=== PATIENT | male | born 1950 ===

== ENCOUNTER → 2017-09-30 | Outpatient (CLI) | payer MEDICARE ==
[~2017-09-30] MED LIST: ALTABAX TP; ASPI325T6 PO; ASPIRIN E.C. 8181 MG PO; BACTRIM DS 8001 TAB PO; BACTROBAN2% TP; CLINDAMYCIN PHO60 ML TP; GLUCOPHAGE500 MG/TAB PO; LEVAQUIN 5500 MG/TA1 PO; LIPITOR 40MG TA40 MG PO; LISINOPRIL20 MG PO; LOPRESSOR 225 MG/TAB PO; METFORMIN500 MG PO; MUCINEX1200 MG PO; NORVASC 5MG5 MG/TAB PO; PHISOHEX TP; PLAVIX 75MG TAB75 MG PO; PRIL40 PO; PROVENTIL0.09 MG/A1 IH; SUPER EPA 1201200 MG PO; TEA TREE OIL; ZESTRIL 5MG5 MG PO
[2017-09-30 16:13] LABS: CHOLESTEROL RISK RATIO 6.1
== END ==
LOC: COL.LAB 15:15
PROVIDERS: Family Medicine
DX: E78.00 Pure hypercholesterolemia, unspecified (principal)

== ENCOUNTER 2018-02-14 06:43 | Emergency (ER) | payer MEDICARE ==
[~2018-02-14] VITALS: Ht 170.2 cm; Wt 94.5 kg
[2018-02-14 06:50] VITALS: TEMP 99.6
[2018-02-14 07:52] LABS: BASO # 0.1 (0.0-0.2); BASO % 0.8 % (0.0-2.0); EOS # 0.3 (0.0-0.7); EOS % 5.1 % (0-4.0); GRAN # 3.8 (1.4-6.5); GRAN % 59.3 % (42.2-75.2); HEMATOCRIT 44.5 % (42.0-52.0); HEMOGLOBIN 14.2 g/dl (13.5-18.0); LYMPH # 1.5 (1.2-3.4); LYMPH % 22.7 % (20.0-51.0); MEAN CELL VOLUME 79 fl (80.0-100.0); MEAN CORPUSCULAR HEMOGLOBIN 25 pg (27.0-31.0); MEAN CORPUSCULAR HGB CONC 32 g/dl (33.0-37.0); MEAN PLATELET VOLUME 10.7 fl (7.4-10.4); MONO # 0.8 (0.1-0.6); MONO % 11.8 % (1.7-9.3); PLATELET COUNT 175 K/mm3 (130-400); RED BLOOD COUNT 5.65 M/mm3 (4.20-5.60)
[2018-02-14 07:54] LABS: ALANINE AMINOTRANSFERASE 46 U/L (21-72); ALBUMIN 4.2 gm/dL (3.5-5.0); ALKALINE PHOSPHATASE 79 U/L (50-136); ANION GAP 7 mmol/L (7-16); AST,SGOT 30 U/L (15-37); BILIRUBIN,TOTAL 0.5 mg/dL (0.0-1.0); BLOOD UREA NITROGEN 23 mg/dL (9-20); CALCIUM 9.2 mg/dL (8.4-10.2); CARBON DIOXIDE 28 mmol/L (22-30); CHLORIDE 106 mmol/L (98-107); GLUCOSE 177 mg/dL (74-106); POTASSIUM 4.5 mmol/L (3.4-5.0); SODIUM 140 mmol/L (137-145); TOTAL PROTEIN 7.7 gm/dL (6.4-8.2)
[2018-02-14 08:06] LABS: TROPONIN-I < 0.012 ng/mL (0.000-0.034)
[2018-02-14] MEDS ORDERED: GLUCOTROL10 MG PO (08:28)
[2018-02-14] MEDS ORDERED: FLOVENT 44MCG I13 GM IH (08:37)
[2018-02-14] MEDS ORDERED: DOXYCYCLINE 10100 MG PO (08:37)
[2018-02-14] MEDS ORDERED: PHENERGAN W/CO120 M1 PO (08:40)
[2018-02-14 09:50] VITALS: BP 139/76; PULSE 93
== END 2018-02-14 09:56 | disposition home or self-care (01) ==
LOC: COL.ER 06:43
PROVIDERS: Emergency Medicine
DX: J20.9 Acute bronchitis, unspecified (principal); E11.9 Type 2 diabetes mellitus without complications; I10 Essential (primary) hypertension; I25.10 Atherosclerotic heart disease of native coronary artery without angina pectoris; Z98.890 Other specified postprocedural states; Z95.5 Presence of coronary angioplasty implant and graft; Z79.84 Long term (current) use of oral hypoglycemic drugs
CPT/HCPCS: J8540

== ENCOUNTER 2021-01-07 10:57 | Inpatient (IN) | payer MEDICARE ==
[2021-01-07] VITALS (315 sets, daily range): BP systolic 113–152; BP diastolic 59–81; PULSE 78–95; TEMP 96.6–99.4; O2SAT 74–100
[~2021-01-07] VITALS: Ht 170.2 cm; Wt 87.3 kg
[~2021-01-07 10:57] MED LIST changes: +DOXYCYCLINE 10100 MG PO; +FLOVENT 44MCG I13 GM IH; +GLUCOTROL10 MG PO; +PHENERGAN W/CO120 M1 PO
[2021-01-07 11:18] LABS: MEAN CELL VOLUME 88 fl (80.0-100.0); MEAN CORPUSCULAR HGB CONC 32 g/dl (33.0-37.0); MEAN PLATELET VOLUME 11.6 fl (7.4-10.4); PLATELET COUNT 193 K/mm3 (130-400); RED BLOOD COUNT 7.47 M/mm3 (4.20-5.60); REDCELL DISTRIBUTION WIDTH-CV 13.8 % (11.5-14.5)
[2021-01-07 11:19] LABS: HEMATOCRIT 65.5 % (42.0-52.0); HEMOGLOBIN 21.1 g/dl (13.5-18.0); MEAN CORPUSCULAR HEMOGLOBIN 28 pg (27.0-31.0)
[2021-01-07 11:21] LABS: ARTERIAL BLD GAS TCO2 CT 22.7; ARTERIAL BLOOD GAS BASE EXCESS -18.9 (-2-2); ARTERIAL BLOOD GAS HCO3 19.1 meq/L (22-26); ARTERIAL BLOOD GAS PO2 67.6 mmHg (80-100)
[2021-01-07 11:22] LABS: ARTERIAL BLOOD GAS PCO2 118.1 mmHg (35-45); ARTERIAL BLOOD GAS pH 6.83 (7.35-7.45)
[2021-01-07 11:26] LABS: COLLECTION METHOD CATHETER
[2021-01-07 11:31] LABS: PH 6 (5-8); SQUAMOUS EPITHELIAL None Seen /hpf; URINE APPEARANCE Clear; URINE BACTERIA Rare /hpf; URINE BILIRUBIN Negative (NEGATIVE); URINE BLOOD Negative (NEGATIVE); URINE COLOR Straw; URINE GLUCOSE 3+ (NEGATIVE); URINE KETONE Negative (NEGATIVE); URINE LEUKOCYTE ESTERASE Negative (NEGATIVE); URINE NITRATE Negative (NEGATIVE); URINE PROTEIN(semi-quant) 2+ (NEGATIVE); URINE UROBILINOGEN Negative (NEGATIVE)
[2021-01-07 12:14] LABS: EOSINOPHIL 3 % (0-4); NEUTROPHILS 39 % (42.0-75.2)
--- NOTE | 2021-01-07 12:19 | NUR ---
Patient presented code blue and is now stabilized. cotton farmworker contacted patient's spouse, Sue Mesa #[phone] and advised that patient had a health event and was in our emergency room, soon to be admitted to ICU 2. Worker arranged for [facility] emergency services to transport spouse to the hospital as she does not have a car at her work location.
[2021-01-07 12:20] LABS: PLATELET ESTIMATE NORMAL (NORMAL)
[2021-01-07 12:21] LABS: LYMPHOCYTE 57 % (20.0-51.0)
[2021-01-07 12:26] LABS: ALBUMIN 3.4 gm/dL (3.5-5.0); BILIRUBIN,TOTAL 0.7 mg/dL (0.0-1.0); CALCIUM 8.4 mg/dL (8.4-10.2); CREATININE, serum 1.05 (0.66-1.25); TOTAL PROTEIN 6.4 gm/dL (6.4-8.2)
[2021-01-07 12:36] LABS: TSH w REFLEX 5.016 uIU/mL (0.350-4.940)
[2021-01-07 12:38] LABS: TROPONIN-I 0.038 ng/mL (0.000-0.035)
--- NOTE | 2021-01-07 13:55 | NUR ---
1355: pt arrived to ICU 8 with RadhaEMT. Levophed infusing to periperal IV - site appears stable. Propofol and Levophed gtt adjusted for accurate weight. 1400: MD Carline notified again for central line placement - MD in surgery 1405: MD Nas phoned to notify pt's arrival 1440: MD Tiff in room 1445: Anesthesia Paged for arterial line placement 1450: Pt vomited multiple times orange colored emesis with scrambled eggs abovious in output. Oral suctioning and oral care provided - SpO2 maintained >95%. 1500: 2 anesthesia providers in room. TimeOut completed before procedure. 1520: epitaxial reactor technician in room 1537: MD Carline here for central line placement. Levophed gtt moved to central line after MD Carline okay'd placement 1600: Pt's Ignacia at bedside. Update provided. is tearful.
[2021-01-07 14:29] LABS: ARTERIAL BLD GAS O2 SATURATION 95.4 % (92-100); ARTERIAL BLD GAS TCO2 CT 22.4; ARTERIAL BLOOD GAS BASE EXCESS -7.2 (-2-2); ARTERIAL BLOOD GAS HCO3 20.8 meq/L (22-26); ARTERIAL BLOOD GAS PCO2 50.8 mmHg (35-45); ARTERIAL BLOOD GAS PO2 86.5 mmHg (80-100); ARTERIAL BLOOD GAS pH 7.23 (7.35-7.45)
[2021-01-07 14:58] LABS: C-REACTIVE PROTEIN 0.5 mg/dL (0.0-0.9); MAGNESIUM 1.8 mg/dL (1.6-2.3)
[2021-01-07 14:59] LABS: PARTIAL THROMBOPLASTIN TIME 26.5 SECONDS (26.0-37.0)
[2021-01-07 15:23] LABS: TROPONIN-I 0.811 ng/mL (0.000-0.035)
[2021-01-07 15:57] LABS: CALCIUM 7.1 mg/dL (8.4-10.2); CREATININE, serum 0.92 (0.66-1.25); POTASSIUM 4.2 mmol/L (3.4-5.0)
[2021-01-07 16:49] LABS: HEMATOCRIT 48.8 % (42.0-52.0)
[2021-01-07 16:50] LABS: HEMOGLOBIN 16.8 g/dl (13.5-18.0)
[2021-01-07 16:54] LABS: CALCIUM 6.9 mg/dL (8.4-10.2); CREATININE, serum 0.87 (0.66-1.25); POTASSIUM 3.9 mmol/L (3.4-5.0)
[2021-01-07 17:05] LABS: C-REACTIVE PROTEIN 0.8 mg/dL (0.0-0.9)
[2021-01-07 18:21] LABS: CALCIUM 6.9 mg/dL (8.4-10.2); CREATININE, serum 0.8 (0.66-1.25); POTASSIUM 3.4 mmol/L (3.4-5.0)
[2021-01-07] MEDS ORDERED: CLARITIN 1010 MG/TAB PO (18:28)
[2021-01-07] MEDS ORDERED: ONE-A-DAY ESSE1 EACH PO (18:29)
[2021-01-07] MEDS ORDERED: UBIQUINOL100 MG PO (18:30)
[2021-01-07] MEDS ORDERED: ADVIL200 MG PO (18:30)
[2021-01-07] MEDS ORDERED: OMEGA-3 1000 MG1 CAP PO (18:31)
[2021-01-07 19:19] LABS: ARTERIAL BLD GAS O2 SATURATION 98.8 % (92-100); ARTERIAL BLD GAS TCO2 CT 22.4; ARTERIAL BLOOD GAS BASE EXCESS -1.2 (-2-2); ARTERIAL BLOOD GAS HCO3 21.4 meq/L (22-26); ARTERIAL BLOOD GAS PCO2 31.2 mmHg (35-45); ARTERIAL BLOOD GAS pH 7.46 (7.35-7.45)
[2021-01-07 19:21] LABS: ARTERIAL BLOOD GAS PO2 164.6 mmHg (80-100)
[2021-01-07 20:37] LABS: CALCIUM 7.1 mg/dL (8.4-10.2); CREATININE, serum 0.83 (0.66-1.25); POTASSIUM 3.1 mmol/L (3.4-5.0)
[2021-01-07 22:38] LABS: CALCIUM 7.1 mg/dL (8.4-10.2); CREATININE, serum 0.74 (0.66-1.25); POTASSIUM 3.1 mmol/L (3.4-5.0)
[2021-01-07 23:14] LABS: ARTERIAL BLD GAS O2 SATURATION 96.2 % (92-100); ARTERIAL BLD GAS TCO2 CT 23.3; ARTERIAL BLOOD GAS BASE EXCESS -1.3 (-2-2); ARTERIAL BLOOD GAS HCO3 22.2 meq/L (22-26); ARTERIAL BLOOD GAS PCO2 34.3 mmHg (35-45); ARTERIAL BLOOD GAS pH 7.43 (7.35-7.45)
[2021-01-08] VITALS (573 sets, daily range): BP systolic 82–165; BP diastolic 50–70; PULSE 62–78; TEMP 98.3–101.1; O2SAT 83–100
[2021-01-08 00:53] LABS: CALCIUM 7.1 mg/dL (8.4-10.2); CREATININE, serum 0.81 (0.66-1.25); POTASSIUM 3.1 mmol/L (3.4-5.0)
[2021-01-08 02:20] LABS: CALCIUM 6.9 mg/dL (8.4-10.2); CREATININE, serum 0.74 (0.66-1.25)
[2021-01-08 02:38] LABS: TROPONIN-I 12.8 ng/mL (0.000-0.035)
[2021-01-08 04:16] LABS: BASO % 0.3 % (0.0-2.0); EOS % 0.2 % (0-4.0); GRAN # 9.5 (1.4-6.5); GRAN % 80.4 % (42.2-75.2); HEMATOCRIT 45.4 % (42.0-52.0); HEMOGLOBIN 15.3 g/dl (13.5-18.0); LYMPH # 1.4 (1.2-3.4); LYMPH % 11.9 % (20.0-51.0); MEAN CELL VOLUME 84 fl (80.0-100.0); MEAN CORPUSCULAR HEMOGLOBIN 28 pg (27.0-31.0); MEAN CORPUSCULAR HGB CONC 34 g/dl (33.0-37.0); MONO # 0.8 (0.1-0.6); MONO % 6.9 % (1.7-9.3); PLATELET COUNT 201 K/mm3 (130-400); RED BLOOD COUNT 5.41 M/mm3 (4.20-5.60); REDCELL DISTRIBUTION WIDTH-CV 13.2 % (11.5-14.5)
[2021-01-08 04:25] LABS: INR 1.1 (0.8-3.0)
[2021-01-08 04:28] LABS: ALBUMIN 2.4 gm/dL (3.5-5.0); BILIRUBIN,TOTAL 0.4 mg/dL (0.0-1.0); CALCIUM 6.8 mg/dL (8.4-10.2); CREATININE, serum 0.77 (0.66-1.25); MAGNESIUM 1.9 mg/dL (1.6-2.3); PHOSPHOROUS 2.2 mg/dL (2.5-4.5); POTASSIUM 3.4 mmol/L (3.4-5.0)
[2021-01-08 05:23] LABS: CHOLESTEROL RISK RATIO 5.2
[2021-01-08 05:27] LABS: ARTERIAL BLD GAS TCO2 CT 22.1; ARTERIAL BLOOD GAS BASE EXCESS -1.4 (-2-2); ARTERIAL BLOOD GAS HCO3 21.2 meq/L (22-26); ARTERIAL BLOOD GAS PCO2 30.2 mmHg (35-45); ARTERIAL BLOOD GAS PO2 83.7 mmHg (80-100); ARTERIAL BLOOD GAS pH 7.46 (7.35-7.45)
--- NOTE | 2021-01-08 05:30 | NUR ---
CVP OBTAINED PER JERRY REQUEST. CVP 15
--- NOTE | 2021-01-08 05:57 | NUR ---
PATIENT HAS BEEN ADMITTED LESS THAN 24 HOURS
[2021-01-08 06:41] LABS: CALCIUM 6.4 mg/dL (8.4-10.2); CREATININE, serum 0.79 (0.66-1.25); POTASSIUM 4.9 mmol/L (3.4-5.0)
[2021-01-08 06:54] LABS: TROPONIN-I 11.2 ng/mL (0.000-0.035)
--- NOTE | 2021-01-08 07:25 | NUR ---
Patient remained intubated and sedated throughout night. On levophed. Troponins reported to Dr. Brito. Possible heart cath this AM. Report given to HERBERTH Acuna
[2021-01-08 08:33] LABS: CALCIUM 6.5 mg/dL (8.4-10.2); CREATININE, serum 0.81 (0.66-1.25); POTASSIUM 3.3 mmol/L (3.4-5.0)
--- NOTE | 2021-01-08 09:28 | NUR ---
RECIEVED BEDSIDE REPORT.
[2021-01-08 10:23] LABS: CALCIUM 6.5 mg/dL (8.4-10.2); CREATININE, serum 0.79 (0.66-1.25); POTASSIUM 3.1 mmol/L (3.4-5.0)
[2021-01-08 10:36] LABS: TROPONIN-I 8.71 ng/mL (0.000-0.035)
--- NOTE | 2021-01-08 12:50 | NUR ---
Jumpbasting Armhole Baster met with patient's , Ignacia (ph#[phone]) at bedside as patient is currently intubated. Patient lives in [place] with his who advised that patient has not seen a primary care physician in quite a long time. Patient's reports patient does not take any regular, prescription medications and does not use any DME. Patient is normally independent with ADLS. Ignacia advised that patient has Advance Directives and that she will bring in a copy. SW will continue to monitor for discharge needs.
--- NOTE | 2021-01-08 19:33 | NUR ---
MR. COREA HAS RESTED COMFORTABLY ALL DAY. MR. COREA WENT TO BEE ROBBER APPROX 1400 AND HAD 5 CATHS PLACED WITHOUT INCIDENT. HIS HAS BEEN AT BEDSIDE AND IS WELL INFORMED ABOUT HIS CONDITION AND SHE IS MAKING THE DECISIONS FOR HIM. IN THE AM DURING ROUNDS DR CARDENAS ADJUSTED HIS VENT AND THE PATIENT HAS TOLERATED IT WELL. WILL CONTINUE TO MONITOR.
[2021-01-09] VITALS (751 sets, daily range): BP systolic 97–175; BP diastolic 50–77; PULSE 65–75; TEMP 99–100.1; O2SAT 86–100
[2021-01-09 02:03] LABS: CALCIUM 6.9 mg/dL (8.4-10.2); CREATININE, serum 0.73 (0.66-1.25); MAGNESIUM 1.9 mg/dL (1.6-2.3); POTASSIUM 3.3 mmol/L (3.4-5.0)
--- NOTE | 2021-01-09 04:47 | NUR ---
DECREASE TO HALF OF WHAT THE STARTING DOSE WAS AT THE BEGINNING OF THE SHIFT, 0.12 MCG/KG/MIN, DOWN TO 0.06 MCG/KG/MIN PER DR. GALLARDO
[2021-01-09 06:48] LABS: BASO % 0.5 % (0.0-2.0); EOS # 0.1 (0.0-0.7); GRAN # 5.4 (1.4-6.5); GRAN % 81.1 % (42.2-75.2); HEMATOCRIT 39.6 % (42.0-52.0); HEMOGLOBIN 12.9 g/dl (13.5-18.0); LYMPH # 0.7 (1.2-3.4); MEAN CELL VOLUME 86 fl (80.0-100.0); MEAN CORPUSCULAR HEMOGLOBIN 28 pg (27.0-31.0); MEAN CORPUSCULAR HGB CONC 33 g/dl (33.0-37.0); MEAN PLATELET VOLUME 11.3 fl (7.4-10.4); MONO # 0.3 (0.1-0.6); MONO % 5.1 % (1.7-9.3); PLATELET COUNT 132 K/mm3 (130-400); RED BLOOD COUNT 4.63 M/mm3 (4.20-5.60); REDCELL DISTRIBUTION WIDTH-CV 13.6 % (11.5-14.5)
--- NOTE | 2021-01-09 06:55 | NUR ---
PATIENT WAS SLOW TO AWAKEN, BUT ONCE HE DID HE BECAME AGITATED AFTER SEVERAL MINUTES AND HIS BLOOD PRESSURE INCREASED; RESUMED SEDATION
[2021-01-09 07:09] LABS: ALBUMIN 2.2 gm/dL (3.5-5.0); BILIRUBIN,TOTAL 0.5 mg/dL (0.0-1.0); CALCIUM 6.9 mg/dL (8.4-10.2); CREATININE, serum 0.72 (0.66-1.25); PHOSPHOROUS 2.7 mg/dL (2.5-4.5); POTASSIUM 3.9 mmol/L (3.4-5.0); TOTAL PROTEIN 4.7 gm/dL (6.4-8.2)
--- NOTE | 2021-01-09 07:50 | NUR ---
MR. COREA IS RESTING COMFRTABLY IN BED VENTILATED AND SEDATED. WITH SHIFT CHANGE CHECKED RIGHT FEMORAL CATH SITE AND HAS NO SIGNS OF HEMMORHAGE OR HEMATOMA AROUND THE SITE.
--- NOTE | 2021-01-09 07:51 | NUR ---
Report given to HERBERTH Acuna
[2021-01-09 07:59] LABS: COLLECTION METHOD CATHETER
[2021-01-09 08:09] LABS: MUCOUS Present /lpf; PH 5 (5-8); SQUAMOUS EPITHELIAL None Seen /hpf; URINE APPEARANCE Cloudy; URINE BACTERIA Rare /hpf; URINE BILIRUBIN Negative (NEGATIVE); URINE BLOOD 1+ (NEGATIVE); URINE COLOR Amber; URINE GLUCOSE Negative (NEGATIVE); URINE KETONE Negative (NEGATIVE); URINE LEUKOCYTE ESTERASE Negative (NEGATIVE); URINE NITRATE Negative (NEGATIVE); URINE PROTEIN(semi-quant) 2+ (NEGATIVE); URINE RBC >50 /hpf; URINE UROBILINOGEN Negative (NEGATIVE)
[2021-01-09 08:14] LABS: INR 1.2 (0.8-3.0); PROTHROMBIN TIME 13.1 SECONDS (9.7-12.8)
[2021-01-09 08:32] LABS: ARTERIAL BLD GAS O2 SATURATION 95.5 % (92-100); ARTERIAL BLOOD GAS BASE EXCESS -0.4 (-2-2); ARTERIAL BLOOD GAS HCO3 22.9 meq/L (22-26); ARTERIAL BLOOD GAS PCO2 33.7 mmHg (35-45); ARTERIAL BLOOD GAS PO2 75.2 mmHg (80-100); ARTERIAL BLOOD GAS pH 7.45 (7.35-7.45)
[2021-01-09 09:03] LABS: PATHOLOGY DIFF REVIEW OK +
--- NOTE | 2021-01-09 18:26 | NUR ---
SEDATION VACATION WAS DONE EARLIER IN THE DAY AND THE PATIENT WAS EASILY TO BE AROUNSED AND FOLLOWED COMMANDS
--- NOTE | 2021-01-09 19:52 | NUR ---
REPORT GIVEN TO CLARK CONNELL AT BEDSIDE.
--- NOTE | 2021-01-09 23:15 | NUR ---
RT WAS UNAVAILBALE AT THIS TIME
[2021-01-10] VITALS (729 sets, daily range): BP systolic 100–158; BP diastolic 49–75; PULSE 66–93; TEMP 99.2–102.1; O2SAT 73–100
[2021-01-10 04:42] LABS: ARTERIAL BLD GAS TCO2 CT 22.1; ARTERIAL BLOOD GAS BASE EXCESS -3.8 (-2-2); ARTERIAL BLOOD GAS HCO3 20.9 meq/L (22-26); ARTERIAL BLOOD GAS PCO2 37.2 mmHg (35-45); ARTERIAL BLOOD GAS PO2 90.9 mmHg (80-100); ARTERIAL BLOOD GAS pH 7.37 (7.35-7.45)
[2021-01-10 05:59] LABS: BASO % 0.3 % (0.0-2.0); EOS # 0.2 (0.0-0.7); EOS % 2.3 % (0-4.0); GRAN # 5.6 (1.4-6.5); GRAN % 79.5 % (42.2-75.2); HEMATOCRIT 38.1 % (42.0-52.0); HEMOGLOBIN 12.1 g/dl (13.5-18.0); LYMPH # 0.8 (1.2-3.4); LYMPH % 11.3 % (20.0-51.0); MEAN CELL VOLUME 87 fl (80.0-100.0); MEAN CORPUSCULAR HEMOGLOBIN 28 pg (27.0-31.0); MEAN CORPUSCULAR HGB CONC 32 g/dl (33.0-37.0); MONO # 0.4 (0.1-0.6); MONO % 6.2 % (1.7-9.3); PLATELET COUNT 138 K/mm3 (130-400); RED BLOOD COUNT 4.38 M/mm3 (4.20-5.60); REDCELL DISTRIBUTION WIDTH-CV 13.5 % (11.5-14.5)
[2021-01-10 06:19] LABS: ALBUMIN 2.3 gm/dL (3.5-5.0); BILIRUBIN,TOTAL 0.4 mg/dL (0.0-1.0); CALCIUM 7.4 mg/dL (8.4-10.2); CREATININE, serum 0.82 (0.66-1.25); PHOSPHOROUS 3.1 mg/dL (2.5-4.5); POTASSIUM 3.9 mmol/L (3.4-5.0); TOTAL PROTEIN 4.9 gm/dL (6.4-8.2)
[2021-01-10 06:55] LABS: INR 1.1 (0.8-3.0); PROTHROMBIN TIME 12.1 SECONDS (9.7-12.8)
--- NOTE | 2021-01-10 07:10 | NUR ---
RECEIVED REPORT FROM HERBERTH RODAS. PT RESTLESS D/T SEDATION LOW WITH TRYING TO EXTUBATE THIS AM. RT RADIAL ART LINE NOTED WITH BPs 200. ATTEMPTS MADE TO CALM PT. WHEN PT IS LEFT ALONE, HE IS ABLE TO SETTLE SOME. VENT SETTINGS: AC, TV 400, PEEP 5, RR 20, FIO2 30%. RT AT BEDSIDE ATTEMPTING TO CHANGE PT OVER TO WEANING TRIAL. SHANK MAKER IN PLACE. OGT WITH TF ON HOLD. FC PATENT AND DRAINING TO GRAVITY. SEE GTT FLOWSHEET.
--- NOTE | 2021-01-10 10:00 | NUR ---
DR MOORE MADE AWARE OF PT'S TEMP 101.7. NEW ORDERS RECEIVED.
--- NOTE | 2021-01-10 11:27 | NUR ---
DR CARDENAS AT BEDSIDE FOR ASSESSMENT. PROVIDER PLACES PROPOFOL ON STANDBY. PROVIDER STATES THAT IN ABOUT 15 MINUTES IF PT IS ABLE TO FOLLOW ALL COMMANDS AND CAN LIFT HEAD OFF PILLOW, THEN TO CALL RT AND EXTUBATE AND THEN DRAW ABG IN AN HOUR.
--- NOTE | 2021-01-10 11:57 | NUR ---
DR CARDENAS REQUESTS ABG PRIOR TO EXTUBATION. RT AWARE.
[2021-01-10 12:13] LABS: ARTERIAL BLD GAS O2 SATURATION 89.3 % (92-100); ARTERIAL BLD GAS TCO2 CT 23.3; ARTERIAL BLOOD GAS BASE EXCESS -0.8 (-2-2); ARTERIAL BLOOD GAS HCO3 22.3 meq/L (22-26); ARTERIAL BLOOD GAS PCO2 32.4 mmHg (35-45); ARTERIAL BLOOD GAS PO2 49.9 mmHg (80-100); ARTERIAL BLOOD GAS pH 7.46 (7.35-7.45)
--- NOTE | 2021-01-10 12:20 | NUR ---
DR CARDENAS AT BEDSIDE STATING TO RESTART SEDATION AT PREVIOUS SETTINGS AND TO TRY EXTUBATION TOMORROW R/T LOW PO2 ON CURRENT ABG. AT BEDSIDE AND VOICED UNDERSTANDING. VSS. SEE GTT FLOWSHEET.
--- NOTE | 2021-01-10 20:00 | NUR ---
Unable to do suicide screen as patient in sedated and intubated at this time.
[2021-01-11] VITALS (746 sets, daily range): BP systolic 106–200; BP diastolic 48–89; PULSE 70–95; TEMP 98.8–100.8; O2SAT 72–100
--- NOTE | 2021-01-11 04:53 | NUR ---
This RN at bedside to start sedation vacation. Patient greets with eyes open, nods head yes and no when asking questions. Explained sedation vacation and hopes to extubate today, nods yes to understanding. Encouraged to remain calm as possible and just focus on breathing, nods yes again with understanding. Patient then attempts to raise arms to help with repositioning and lifts head so pillow can be adjusted. Denies needs, nods yes when asked if patient is comfortable.
[2021-01-11 04:55] LABS: ARTERIAL BLD GAS O2 SATURATION 97.3 % (92-100); ARTERIAL BLOOD GAS HCO3 22.9 meq/L (22-26); ARTERIAL BLOOD GAS PCO2 35.6 mmHg (35-45); ARTERIAL BLOOD GAS PO2 99.6 mmHg (80-100); ARTERIAL BLOOD GAS pH 7.43 (7.35-7.45)
[2021-01-11 05:24] LABS: BASO % 0.4 % (0.0-2.0); EOS # 0.2 (0.0-0.7); EOS % 3.2 % (0-4.0); GRAN # 4.3 (1.4-6.5); GRAN % 76.2 % (42.2-75.2); HEMOGLOBIN 11.6 g/dl (13.5-18.0); LYMPH # 0.6 (1.2-3.4); LYMPH % 10.8 % (20.0-51.0); MEAN CELL VOLUME 89 fl (80.0-100.0); MEAN CORPUSCULAR HEMOGLOBIN 28 pg (27.0-31.0); MEAN CORPUSCULAR HGB CONC 31 g/dl (33.0-37.0); MONO # 0.5 (0.1-0.6); PLATELET COUNT 121 K/mm3 (130-400); RED BLOOD COUNT 4.15 M/mm3 (4.20-5.60); REDCELL DISTRIBUTION WIDTH-CV 13.5 % (11.5-14.5)
[2021-01-11 05:26] LABS: HEMATOCRIT 36.9 % (42.0-52.0)
[2021-01-11 05:38] LABS: CALCIUM 7.7 mg/dL (8.4-10.2); CREATININE, serum 0.75 (0.66-1.25); MAGNESIUM 1.8 mg/dL (1.6-2.3); POTASSIUM 3.6 mmol/L (3.4-5.0)
--- NOTE | 2021-01-11 07:13 | NUR ---
RECEIVED REPORT FROM HERBERTH RODAS. SEE GTT FLOWSHEET. PT'S EYES OPEN WHEN RN ENTERS ROOM AND LOOKS AROUND. MEAT GRADER IN PLACE. VSS. TF ON HOLD AT THIS TIME ALONG WITH FENT GTT D/T POSSIBLE EXTUBATION THIS AM. RT AT BEDSIDE TO PLACE PT ON CPAP WEANING TRIAL.
--- NOTE | 2021-01-11 08:05 | NUR ---
PT POINTS AT NEEDING TO HAVE A BM. THIS RN AND HERBERTH MANE ASSISTED PT ONTO BED CUMMINGS WITHOUT PROBLEMS. AFTER ROLLING OFF BEDPAN AND GETTIGN CLEANED UP, PT APPEARS PANICKY AND POX NOTED 82%. ATTEMPTED TO HELP PT SLOW BREATHING DOWN AND SUCTION ETT FOR POTENTIAL MUCUS BLOCKAGE. UNSUCCESSFUL AND POXX NOW 79%. CALLED RT TO BEDSIDE. RT PLACES PT BACK ON AC MODE AND TURNS FIO2 UP TO 100% AND THEY ATTEMTPED TO SUCTION THE ETT. HR STABLE. SBP 180-200. RR IN THE 30s. CALLED DR CARDENAS TO NOTIFY HIM WHAT WAS GOING ON AND WHAT HAS BEEN ATTEMPTED SO FAR. BILATERAL LUNG SOUNDS ASCULTATED. RT PUSHES ETT BACK TO 26 AT THE LIPS WHEN NOTED IT WAS 23 AT THE LIP BUT OGT WAS AT THE CORRECT SPOT OF [address] CM [address] THE LIP. DR CARDENAS STATES TO PLACE SEDATIOON BACK ON PT AND GET HIM CALMED DOWN. PROVIDER STATES THAT AFTER HIS POX COMES BACK UP TO 100% TO START DECREASING FIO2 BACK DOWN AND THEN START WEANIGN SEDATION BACK DOWN AND WILL CONSIDER TRYING WEANING TRIAL AGAIN LATER DEPENDING ON ASSESSMENTS. IS AT BEDSIDE DURING INCIDENT AND MADE AWARE OF POC. VERBALIZED UNDERSTANDING. SEE GTT FLOWSHEET.
--- NOTE | 2021-01-11 09:35 | NUR ---
POX HITS 100% FINALLY. FIO2 DECREASED TO 80%.
--- NOTE | 2021-01-11 10:11 | NUR ---
DR CARDENAS AT BEDSIDE FOR ASSESSMENT. PROVIDER STATES THAT HIS PLEURAL EFFUSIONS ARE WORSE AND COULD BE THE CAUSE OF HIS EPISODES THIS AM. SEE MAR FOR NEW ORDERS. PROVIDER STATES TO RESTART TF AND TO INCREASE SEDATION. SEE GTT FLOWSHEET. TF RESTARTED AT 35ML/HR. VSS. REMAINS AT BEDSIDE.
--- NOTE | 2021-01-11 17:00 | NUR ---
PT AROUSES EASILY AND COUGHS AGAINST VENT AND INCREASES RR WHEN WOKEN UP. PT ABLE TO FOLLOW COMMANDS AND THEN CALMS BACK DOWN ONCE LEFT ALONE. VSS.
--- NOTE | 2021-01-11 17:26 | NUR ---
NOTED WITH THIS STOOL CLEAN UP AND ROLL, PT'S BLISTERS THAT WERE IN LINE AT THE TOP OF HIS COCCYX HAVE ALL BUSTED OPEN. LEFT OPEN TO AIR. WILL MONITOR CLOSELY. EDGES PINK AND GOOD COLORING AT THIS TIME.
[2021-01-12] VITALS (691 sets, daily range): BP systolic 119–173; BP diastolic 53–94; PULSE 73–90; TEMP 98.5–100.6; O2SAT 58–100
[2021-01-12 05:01] LABS: ARTERIAL BLD GAS O2 SATURATION 96.7 % (92-100); ARTERIAL BLD GAS TCO2 CT 25.6; ARTERIAL BLOOD GAS BASE EXCESS 0.9 (-2-2); ARTERIAL BLOOD GAS HCO3 24.5 meq/L (22-26); ARTERIAL BLOOD GAS PCO2 35.9 mmHg (35-45); ARTERIAL BLOOD GAS PO2 93.4 mmHg (80-100); ARTERIAL BLOOD GAS pH 7.45 (7.35-7.45)
[2021-01-12 05:40] LABS: ALANINE AMINOTRANSFERASE 38 U/L (4-49); ALBUMIN 2.5 gm/dL (3.5-5.0); ALKALINE PHOSPHATASE 154 U/L (50-136); ANION GAP 5 mmol/L (7-16); AST,SGOT 36 U/L (15-37); BILIRUBIN,TOTAL 0.5 mg/dL (0.0-1.0); BLOOD UREA NITROGEN 19 mg/dL (9-20); C-REACTIVE PROTEIN > 9.0 mg/dL (0.0-0.9); CALCIUM 7.6 mg/dL (8.4-10.2); CARBON DIOXIDE 28 mmol/L (22-30); CHLORIDE 105 mmol/L (98-107); CREATININE, serum 0.78 (0.66-1.25); GLUCOSE 215 mg/dL (74-106); MAGNESIUM 1.8 mg/dL (1.6-2.3); PHOSPHOROUS 2.6 mg/dL (2.5-4.5); POTASSIUM 3.1 mmol/L (3.4-5.0); SODIUM 137 mmol/L (137-145); TOTAL PROTEIN 5.2 gm/dL (6.4-8.2)
--- NOTE | 2021-01-12 05:40 | NUR ---
PATIENT RAN TEMPERATURES RANGING FROM 100.8 TO 100.0 OVERNIGHT; WILL CONTINUE TO MONITOR
[2021-01-12 05:45] LABS: PRE ALBUMIN 11.4 mg/dL (17.6-36.0)
--- NOTE | 2021-01-12 06:53 | NUR ---
WEANING TRIAL TO BE COMPLETED ON TODAY
--- NOTE | 2021-01-12 07:28 | NUR ---
Report given to HERBERTH Acuna
--- NOTE | 2021-01-12 10:19 | NUR ---
PT EXTUBATED, NO ISSUES AND PATIENT IS RESPONDING AND ORIENTED.
[2021-01-12 12:20] LABS: ARTERIAL BLD GAS TCO2 CT 27.9; ARTERIAL BLOOD GAS BASE EXCESS 4.4 (-2-2); ARTERIAL BLOOD GAS HCO3 26.9 meq/L (22-26); ARTERIAL BLOOD GAS PCO2 33.7 mmHg (35-45); ARTERIAL BLOOD GAS PO2 64.2 mmHg (80-100); ARTERIAL BLOOD GAS pH 7.52 (7.35-7.45)
[2021-01-12 13:42] LABS: COLLECTION METHOD CATHETER
[2021-01-12 13:53] LABS: MUCOUS Present /lpf; PH 6 (5-8); SQUAMOUS EPITHELIAL None Seen /hpf; URINE APPEARANCE Hazy; URINE BACTERIA Rare /hpf; URINE BILIRUBIN Negative (NEGATIVE); URINE BLOOD 1+ (NEGATIVE); URINE COLOR Yellow; URINE GLUCOSE 2+ (NEGATIVE); URINE KETONE Negative (NEGATIVE); URINE LEUKOCYTE ESTERASE Negative (NEGATIVE); URINE NITRATE Negative (NEGATIVE); URINE PROTEIN(semi-quant) 1+ (NEGATIVE); URINE UROBILINOGEN Negative (NEGATIVE); URINE WBC 0-2 /hpf
--- NOTE | 2021-01-12 15:30 | NUR ---
AT 1007 MR. COREA WAS EXTUBATED WITH NURSE AND RT AT BEDSIDE. THE PATIENT DID WELL AND WAS PLACED ON OXYMASK 5 LPM. THE PATIENT IS ABLE TO SUCTION SECRETIONS ON OWN AND HAS BEEN SATING IN 95-99%.
--- NOTE | 2021-01-12 20:00 | NUR ---
Patient assessment complete and charted. Patient alert and orientated. Soft spoken due to sore throat. Unable to manage secretions at this time. Has suction in place, able to independently use. Refusing all oral medications. Ragini BERNARD aware. Speech eval added. Patient denies needs at this time. Call light in reach.
[2021-01-12 20:03] LABS: CREATININE, serum 0.76 (0.66-1.25); MAGNESIUM 1.7 mg/dL (1.6-2.3); PHOSPHOROUS 3.2 mg/dL (2.5-4.5)
[2021-01-13] VITALS (677 sets, daily range): BP systolic 115–158; BP diastolic 62–85; PULSE 75–85; TEMP 99–99.9; O2SAT 81–100
[2021-01-13 05:59] LABS: BASO % 0.7 % (0.0-2.0); EOS # 0.3 (0.0-0.7); EOS % 4.1 % (0-4.0); GRAN # 4.5 (1.4-6.5); GRAN % 73.3 % (42.2-75.2); HEMATOCRIT 39.5 % (42.0-52.0); HEMOGLOBIN 12.9 g/dl (13.5-18.0); LYMPH # 0.7 (1.2-3.4); LYMPH % 10.9 % (20.0-51.0); MEAN CORPUSCULAR HEMOGLOBIN 28 pg (27.0-31.0); MEAN CORPUSCULAR HGB CONC 33 g/dl (33.0-37.0); MEAN PLATELET VOLUME 10.6 fl (7.4-10.4); MONO # 0.6 (0.1-0.6); PLATELET COUNT 213 K/mm3 (130-400); RED BLOOD COUNT 4.69 M/mm3 (4.20-5.60)
[2021-01-13 06:00] LABS: MEAN CELL VOLUME 84 fl (80.0-100.0)
[2021-01-13 06:13] LABS: CALCIUM 8.4 mg/dL (8.4-10.2); CREATININE, serum 0.8 (0.66-1.25); MAGNESIUM 1.7 mg/dL (1.6-2.3); PHOSPHOROUS 3.1 mg/dL (2.5-4.5); POTASSIUM 3.2 mmol/L (3.4-5.0)
--- NOTE | 2021-01-13 06:18 | NUR ---
Patient had difficulty managing secretions throughout night. Was able to oral suction self. Incontinent of stool during night. Offered bedpan during night. Agreed once to bedpan. Repositioned Q2H. Resting in bed this AM. Call light in reach.
--- NOTE | 2021-01-13 07:34 | NUR ---
Report given to HERBERTH Kemp
--- NOTE | 2021-01-13 09:30 | NUR ---
CHARLES WITH SPEECH IS HERE TO EVALUATE SWALLOW.
--- NOTE | 2021-01-13 12:15 | NUR ---
SPEECH THERAPYCHARLES, STATES THAT PATIENT WILL GO FOR FIBEROPTIC SWALLOW EVALUATION AT 2 PM
--- NOTE | 2021-01-13 12:25 | NUR ---
Follow up visit from the purchase order checker. NO needs right now.
--- NOTE | 2021-01-13 13:26 | NUR ---
Clay Washer reviewed PT note which recommends possibly IPR. SW contacted patient's , Ignacia who is agreeable to IPR screen. SW contacted Arleen IPR Director to give referral.
--- NOTE | 2021-01-13 16:30 | NUR ---
RADIOLOGY HERE TO DO BARIUM SWALLOW STUDY AT BEDSIDE.
--- NOTE | 2021-01-13 17:30 | NUR ---
CHARLES, FROM SPEECH, RECOMMENDS NECTAR THICK LIQUIDS AND CRUSHED PILLS WITH APPLESAUCE. NPO OTHERWISE
--- NOTE | 2021-01-13 18:00 | NUR ---
PATIENT VERY TIRED AFTER THE EVENTS OF THE DAY. HE STATES THAT HE FEELS VERY WEAK AND REQUESTS TO USE THE BIPAP. PATIENT PLACED ON BIPAP.
--- NOTE | 2021-01-13 19:00 | NUR ---
PATIENT REQUESTS TO TAKE OFF BIPAP AND GO BACK TO NASAL CANNULA.
--- NOTE | 2021-01-13 19:19 | NUR ---
REPORT GIVEN TO HERBERTH FLOYD
[2021-01-14] VITALS (248 sets, daily range): BP systolic 143–167; BP diastolic 59–85; PULSE 24–81; TEMP 97.8–99.2; O2SAT 84–100
[2021-01-14 04:03] LABS: HEMATOCRIT 38.3 % (42.0-52.0); HEMOGLOBIN 12.6 g/dl (13.5-18.0); MEAN CELL VOLUME 84 fl (80.0-100.0); MEAN CORPUSCULAR HEMOGLOBIN 28 pg (27.0-31.0); MEAN CORPUSCULAR HGB CONC 33 g/dl (33.0-37.0); MEAN PLATELET VOLUME 10.3 fl (7.4-10.4); PLATELET COUNT 245 K/mm3 (130-400); RED BLOOD COUNT 4.58 M/mm3 (4.20-5.60); REDCELL DISTRIBUTION WIDTH-CV 12.6 % (11.5-14.5)
[2021-01-14 04:15] LABS: CALCIUM 8.5 mg/dL (8.4-10.2); CREATININE, serum 0.73 (0.66-1.25); POTASSIUM 3.3 mmol/L (3.4-5.0)
[2021-01-14 04:21] LABS: BAND 6 % (0-10); EOSINOPHIL 2 % (0-4); LYMPHOCYTE 15 % (20.0-51.0); NEUTROPHILS 65 % (42.0-75.2); PLATELET ESTIMATE NORMAL (NORMAL)
--- NOTE | 2021-01-14 09:30 | NUR ---
Pt admitted to medical unit rm 312 from ICU via bed, awake and alert accompanied by this nurse, SOFTWARE QA MANAGER and pt's spouse. Pruitt to DD with clear, yellow urine. IV medications connected to triple lumen catheter in left subclavian, no s/s of complications. Dressing to sacral region CDI. Pt with suction available as needed. No further needs reported. Call light in reach.
--- NOTE | 2021-01-14 09:38 | NUR ---
MR. NG WAS AWAKE AND ALERT THIS MORNING AND RESTING COMFRTABLY IN BED WITH BY HIS SIDE. MR. NG TOOK HIS ORAL MEDICATIONS WITH APPLESAUCE WITHOUT ISSUE. MR. NG WAS ASSIGNED A BED ON THE MEDICAL UNIT AND REPORT WAS GIVEN TO TAMIA AT 0900, AND THE PATIENT LEFT THE UNIT AT 0915 VIA BED WITH ALL BELONGINGS.
--- NOTE | 2021-01-14 15:03 | NUR ---
SW met with this patient while he was sitting in a chair at bedside, to discuss d/c plan. Patient states that he and his , Ignacia Hernandez ([phone]), live in a bi-level home in [place]. Patient is mostly independent, has no DME's, but states he should probably use something. Patient also states he uses 02 "at times" during the night, stating a couple of times during the week but he doesn't know how many Liters he is on. Patient states he has no PCP but "probably should have". SW discussed why it would be a good idea to establish care with a pcp and will provide patient with a list to choose from. Patient reports he uses [facility] for his medications and he can "usually" afford them. Patient has no MPOA but states he would appoint his as such "but not now". SW will return to discuss these issues with him when his is present. *Anticipate patient will d/c home pending therapy notes.
--- NOTE | 2021-01-14 17:38 | NUR ---
Pt assisted from bed to chair with chair alarm in place to eat dinner, in room at this time. Pt with wobbly gait, mod assist sitting to standing. Pt has had several BM's this shift, with the last couple loose in consistency. No further needs reported. Call light in reach.
--- NOTE | 2021-01-14 19:37 | NUR ---
Report given to HERBERTH Zhang.
[2021-01-15 00:53] VITALS: BP 184/76; PULSE 78; TEMP 98.3
[2021-01-15 01:30] VITALS: BP 144/59
[2021-01-15 04:29] VITALS: BP 156/73; PULSE 72; TEMP 99.1
[2021-01-15 06:51] LABS: HEMATOCRIT 39.3 % (42.0-52.0); MEAN CELL VOLUME 85 fl (80.0-100.0); MEAN CORPUSCULAR HEMOGLOBIN 28 pg (27.0-31.0); MEAN CORPUSCULAR HGB CONC 33 g/dl (33.0-37.0); MEAN PLATELET VOLUME 10.3 fl (7.4-10.4); PLATELET COUNT 300 K/mm3 (130-400); REDCELL DISTRIBUTION WIDTH-CV 12.7 % (11.5-14.5)
--- NOTE | 2021-01-15 06:54 | NUR ---
Report received from HERBERTH Zhang. Pt. resting in bed, awake. Pt. reports he would like breakfast, denies other needs at this time. This RN will call for breakfast. Bed alarm on, call light and belongings in reach.
[2021-01-15 06:57] LABS: CALCIUM 8.5 mg/dL (8.4-10.2); CREATININE, serum 0.61 (0.66-1.25); MAGNESIUM 1.8 mg/dL (1.6-2.3); POTASSIUM 3.1 mmol/L (3.4-5.0)
[2021-01-15 07:34] VITALS: BP 175/79; PULSE 74; TEMP 98.6
--- NOTE | 2021-01-15 07:42 | NUR ---
Pt. OOB to chair at this time. Pt. denies pain/any concerns at this time. Pt. ambulatory w/ standby assist for safety. Chair alarm on, call light & belongings in reach. Plan to replace K today per protocol. Pt. awaiting breakfast.
[2021-01-15] MEDS ORDERED: BRILINTA90 MG PO (09:21)
[2021-01-15] MEDS ORDERED: COREG 6.256.25 MG/TA PO (09:22)
[2021-01-15] MEDS ORDERED: LIPITOR 80MG80 MG PO (09:22)
[2021-01-15] MEDS ORDERED: ZESTRIL40 MG PO (09:22)
[2021-01-15] MEDS ORDERED: ASPIRIN 81M81 MG/TA2 PO (09:23)
[2021-01-15] MEDS ORDERED: K-TAB20 PO (09:23)
[2021-01-15] MEDS ORDERED: LEVEMIR100 U/ML SQ (09:23)
[2021-01-15] MEDS ORDERED: MAG-OX 400400 MG/TAB PO (09:23)
[2021-01-15] MEDS ORDERED: NOVOLOG 100U100 U/M1 SQ (09:24)
--- NOTE | 2021-01-15 09:51 | NUR ---
Patient is unavailable for SPO2 check at this time. Will come back later.
[2021-01-15 12:15] VITALS: BP 156/79; PULSE 75; TEMP 97.9
--- NOTE | 2021-01-15 13:32 | NUR ---
Pt. has voided since his blackwood cath has been removed this AM. Plan for pt. to go to [facility] re[facility]. MARCO ANTONIO Butcher requesting pt.'s subclavian central access to be removed. All paperwork accepted from inpatient rehab. Pt. OOB to the bathroom to move bowels and void. Plan to remove subclavian central access when pt. is back in bed after the bathroom.
--- NOTE | 2021-01-15 15:40 | NUR ---
Pt.'s subclavian central line to left chest has been removed. Both IVs, left and right forearm have been removed. Pt. tolerated everything well. Pt. wheeled down to inpatient rehab, report provided to nurse Gerardo. All questions answered.
== END 2021-01-15 15:40 | DRG 246 ==
LOC: COL.ER 10:57 → ICU 13:11 → MEDICAL 01-14 09:28
PROVIDERS: Emergency Medicine; Internal Medicine; Internal Medicine Adult Congenital Heart Disease; Internal Medicine Pulmonary Disease; Student in an Organized Health Care Education/Training Program; ADMIT Internal Medicine
PROC: 0BH17EZ Insertion of Endotracheal Airway into Trachea, Via Natural or Artificial Opening (ICD-10-PCS; principal; 2021-01-07)
PROC: 5A12012 Performance of Cardiac Output, Single, Manual (ICD-10-PCS; 2021-01-07)
PROC: 5A1955Z Respiratory Ventilation, Greater than 96 Consecutive Hours (ICD-10-PCS; 2021-01-07)
PROC: 03HY32Z Insertion of Monitoring Device into Upper Artery, Percutaneous Approach (ICD-10-PCS; 2021-01-07)
PROC: 02HV33Z Insertion of Infusion Device into Superior Vena Cava, Percutaneous Approach (ICD-10-PCS; 2021-01-07)
PROC: 027 Heart and Great Vessels, Dilation (ICD-10-PCS; 2021-01-08)
PROC: 4A023N7 Measurement of Cardiac Sampling and Pressure, Left Heart, Percutaneous Approach (ICD-10-PCS; 2021-01-08)
PROC: B2111ZZ Fluoroscopy of Multiple Coronary Arteries using Low Osmolar Contrast (ICD-10-PCS; 2021-01-08)
PROC: 5A09357 Assistance with Respiratory Ventilation, Less than 24 Consecutive Hours, Continuous Positive Airway Pressure (ICD-10-PCS; 2021-01-13)
DX: I21.4 Non-ST elevation (NSTEMI) myocardial infarction (principal); E11.10 Type 2 diabetes mellitus with ketoacidosis without coma; E11.00 Type 2 diabetes mellitus with hyperosmolarity without nonketotic hyperglycemic-hyperosmolar coma (NKHHC); J96.01 Acute respiratory failure with hypoxia; I50.23 Acute on chronic systolic (congestive) heart failure; J69.0 Pneumonitis due to inhalation of food and vomit; E87.2 Acidosis; E87.4 Mixed disorder of acid-base balance; Z20.822 Contact with and (suspected) exposure to COVID-19; E11.65 Type 2 diabetes mellitus with hyperglycemia; I25.10 Atherosclerotic heart disease of native coronary artery without angina pectoris; I25.2 Old myocardial infarction; I25.5 Ischemic cardiomyopathy; I48.91 Unspecified atrial fibrillation; D75.1 Secondary polycythemia; I44.7 Left bundle-branch block, unspecified; I08.1 Rheumatic disorders of both mitral and tricuspid valves; E87.6 Hypokalemia; I95.9 Hypotension, unspecified; I10 Essential (primary) hypertension; R00.1 Bradycardia, unspecified; R74.01 Elevation of levels of liver transaminase levels; E78.5 Hyperlipidemia, unspecified; Z95.5 Presence of coronary angioplasty implant and graft; Z87.891 Personal history of nicotine dependence
CPT/HCPCS: 99233-AI; 99239; A4314; C1725; C1751; C1760; C1769; C1874; C1887; C1894; C9600; C9601; J0171; J0583; J0610; J1644; J1650; J1815; J1940; J2543; J2704; J3010; J3370; J3475; J3480; J7030; J7040; J7050; J7060; J7120; Q9967

== ENCOUNTER 2021-01-15 12:09 | Inpatient (IN) | payer MEDICARE ==
[~2021-01-15] VITALS: Ht 170.2 cm; Wt 82.2 kg
[~2021-01-15 12:09] MED LIST changes: +ADVIL200 MG PO; +ASPIRIN 81M81 MG/TA2 PO; +BRILINTA90 MG PO; +CLARITIN 1010 MG/TAB PO; +COREG 6.256.25 MG/TA PO; +K-TAB20 PO; +LEVEMIR100 U/ML SQ; +LIPITOR 80MG80 MG PO; +MAG-OX 400400 MG/TAB PO; +NOVOLOG 100U100 U/M1 SQ; +OMEGA-3 1000 MG1 CAP PO; +ONE-A-DAY ESSE1 EACH PO; +UBIQUINOL100 MG PO; +ZESTRIL40 MG PO
[2021-01-15 17:00] VITALS: BP 145/75; PULSE 78; TEMP 98.7
--- NOTE | 2021-01-15 17:00 | NUR ---
Patient transferred from medical room 312 to [facility] room 337 at [facility]. Patient arrived and was A & O x 3. Patient does not complain of pain at this time. Patient will self ambulate and has to be reminded to use call light as a safety measure. Patient walks the walker and needs to be taught how to use it appropriately. Patient is continent of bladder and bowel. Patient has dysphagia and request suction and bedside. Patient is on a mechanical soft diet with thickened liquid. Patient has a Stage 2 on coccyx. Patient uses gait belt to ambulate. Call light and bedside table are within reach.
[2021-01-15 19:34] VITALS: BP 145/75; PULSE 78; TEMP 98.7
--- NOTE | 2021-01-15 19:46 | NUR ---
PT HAS QUIET VOICE. ANSWERS QUESTIONS CORRECTLY. FOLLLOWS SPECIFIC DIRECTIONS. ASSISTING PT TO EAT. HOB ELEVATED AND NECTAR THICK LIQUIDS PROVIDED. CALL LIGHT IN REACH. BED ALARM SET.
--- NOTE | 2021-01-15 20:00 | NUR ---
AIR MATTRESS PLACED TO PROMOTE GOOD SKIN INTEGRITY. NOTED STAGE [address]PILEX [address].
[2021-01-16 03:48] VITALS: BP 126/55; PULSE 64; TEMP 98.5
--- NOTE | 2021-01-16 05:01 | NUR ---
ASSISTED TO BR THEN TO RECLINER. USING HIS COMPUTER.
--- NOTE | 2021-01-16 05:02 | NUR ---
CHAIR ALARM SET. CALL LIGHT IN REACH.
--- NOTE | 2021-01-16 05:03 | NUR ---
PT TOOK OFF O2 NC A FEW TIMES IN THE NIGHT. HAD TO REMIND HIM TO KEEP IT IN PLACE.
--- NOTE | 2021-01-16 08:00 | NUR ---
PATIENT IS A&O. VSS. DENIES C/O PAIN OR NAUSEA. AM BS WAS 167. AM MEDS GIVEN. [facility] SOFT BREAKFAST AT BEDSIDE. PATIENT TOLERATING THICKENED LIQUIDS. HEAD TO TOE ASSESSMENT COMPLETE, SEE CHARTING INCLUDING STAGE II ON COCCYX. NO OTHER NEEDS AT THIS TIME. CALL LIGHT IN REACH. BED ALARM ON.
--- NOTE | 2021-01-16 09:00 | NUR ---
PATIENT SET OFF CHAIR ALARM. WATER PLANT PUMP OPERATOR SUPERVISOR REPORTS PATIENT DOESN'T CALL FOR HELP AND WILL OFTEN SET OFF BED ALARM. PATIENT FOUND UP IN ROOM TRYING TO GET HIS WALKER. PATIENT REMINDED TO CALL FOR ASSISTANCE FOR HIS SAFETY. PATIENT IS UNSTEADY WITH GAIT WITHOU HELP.
--- NOTE | 2021-01-16 10:30 | NUR ---
ROUNDING, SEE ORDERS.
--- NOTE | 2021-01-16 11:15 | NUR ---
PATIENT SET OFF CHAIR ALARM AGAIN. PATIENT REQUIRES FREQUENT REMINDING EVEN THOUGH HE IS A&O. PATIENTS JUST DOESN'T SEEM LIKE HE WANTS TO CALL FOR HELP. ALSO AT BEDSIDE.
--- NOTE | 2021-01-16 11:50 | NUR ---
SIERRA met with the patient and his , Ignacia (ph#[phone]), to complete intake, as the patient is new to [facility]. The patient lives in [place] with his . He reports independence with ADLs before hospitalization and does not have any DME. The patient does not have a PCP. The patient and his were interested in a list of [place] providers. SIERRA provided them with that list. The patient and his would like some time to look over the list before deciding on a clinic. The patient does not have a DPOA-HC and he was not interested in completing one at this time. The patient and his had no concerns for SW at this time. SW to continue to follow.
--- NOTE | 2021-01-16 13:30 | NUR ---
NURSING RETURNED FROM LUNCH TO FIND PATIENT WAS SETTING OFF HIS CHAIR ALARM. NURSING ENTERED ROOM AND BEGAN YELLING AT STAFF FOR NOT ANSWERING THE CALL LIGHT SOON ENOUGH. PATIENT CALLED OUT TO USE THE BATHROOM, ANSWERED AT THE SURGICAL DESK, WHEN PATIENT DID NOT GET IMMEDIATE RESPONCE HE CALLED OUT APPROX 3 MINUTES LATER. PRIMARY NURSE UNAWARE THE PATIENT HAD CALLED OUT, CALL LIGHT ANSWERED BY ANOTHER NURSE AND PCT NOTIFIED. PATIENT AND ARE NOW BOTH YELLING AT NURSING STATING THE "HAVE THE RIGHT TO CARE, HE HAS THE RIGHT TO BE COMFORTABLE" AND THEN STARTED COMPLAINING ABOUT THE PRESSURE MATRESS BEING TO UNCOMFORTABLE. NURSING ATTEMPTED TO EDUCATE PATIENT & ABOUT PRESSURE ULCER PREVENTION/TREATMENT ESPECIALLY SINCE THE PATIENT HAS A STAGE II PRESSURE SORE ON HIS BOTTOM. THE PATIENT'S DID NOT CARE TO HEAR ABOUT PRESSURE ULCER PREVENTION AND ASKED FOR SOMEONE ELSE TO COME HELP HER TO THE BATHROOM AND BACK TO BED. DISC PAD GRINDER ASSISTED PATIENT BACK INTO BED, MATRESS CHANGED FROM PRESSURE MATRESS TO EGG-CRATE TOPPER. IPR HAULAGE BOSS NOTIFED AND WENT IN TO TALK TO PATIENT AND HIS .
--- NOTE | 2021-01-16 14:45 | NUR ---
AFTER WELL LOGGER TALKED WITH PATIENT & FAMILY TO CLARIFY SITUATION, PATIENT AND WERE NICE TO NURSING STAFF AGAIN. LEAVING FOR A WHILE.
[2021-01-16 18:00] VITALS: BP 117/43; PULSE 74; TEMP 98
[2021-01-17 05:40] VITALS: BP 120/57; PULSE 94; TEMP 97.8
--- NOTE | 2021-01-17 06:56 | NUR ---
Report received by HERBERTH Guzmán. Patient is in bed sleeping. Call light and bedside table are within reach. Will continue to monitor patient throughout shift.
--- NOTE | 2021-01-17 14:00 | NUR ---
Patient has completed all therapies for the day. Patient is resting in recliner. Call light and bedside table are within reach.
--- NOTE | 2021-01-17 14:43 | NUR ---
Patient continues to self ambulate. is at patient's bedside and stated she would make sure he moves around the room safely but he does not listen to her either. This nurse informed the patient we use the alarms to ensure his is safe. Patient acknowledges he understands but continues to ambulate without using call light. Bedside table and call light are within reach. Alarms are engaged.
[2021-01-17 16:43] VITALS: BP 148/61; PULSE 71; TEMP 98.6
--- NOTE | 2021-01-17 18:14 | NUR ---
Patient complains of stabbing pain to midsternum chest. Patient states pain feels like stabbing pain and is constant. Patient states nothing is making it better but is making it hard to breathe. Patient also states it is making it hard to move around. Patient states pain started last evening and has increased today.
--- NOTE | 2021-01-17 18:25 | NUR ---
This nurse contacted MAGALIS Wolf and informed her patient is c/o chest pain and SOA. She informed this nurse to give him nitro. Will continue to monitor patient throughout shift.
[2021-01-17 18:57] LABS: BASO % 0.5 % (0.0-2.0); EOS # 0.3 (0.0-0.7); EOS % 3.5 % (0-4.0); GRAN # 6.4 (1.4-6.5); GRAN % 74.5 % (42.2-75.2); HEMATOCRIT 39.4 % (42.0-52.0); HEMOGLOBIN 13.1 g/dl (13.5-18.0); LYMPH # 1.3 (1.2-3.4); LYMPH % 15.1 % (20.0-51.0); MEAN CELL VOLUME 82 fl (80.0-100.0); MEAN CORPUSCULAR HEMOGLOBIN 27 pg (27.0-31.0); MEAN CORPUSCULAR HGB CONC 33 g/dl (33.0-37.0); MEAN PLATELET VOLUME 9.8 fl (7.4-10.4); MONO # 0.5 (0.1-0.6); MONO % 5.7 % (1.7-9.3); PLATELET COUNT 305 K/mm3 (130-400); RED BLOOD COUNT 4.81 M/mm3 (4.20-5.60); REDCELL DISTRIBUTION WIDTH-CV 12.7 % (11.5-14.5)
[2021-01-17 19:17] LABS: CALCIUM 8.5 mg/dL (8.4-10.2); CREATININE, serum 0.87 mg/dL (0.72-1.25); POTASSIUM 3.7 mmol/L (3.5-4.5)
[2021-01-17 19:38] LABS: TROPONIN-I 0.142 ng/mL (0.00-0.033)
--- NOTE | 2021-01-17 22:59 | NUR ---
Patient alert and oriented. Patient reports chest pain at start of shift. Patient denies SOB, headache, N/V or dizziness. Nitroglycerin PO given by day shift RN around 18:30 pm. Started IV to right hand. PRN Morphine 2 mg IV given around 8pm per JUN. PRN Tramadol PO given per JUN around 9pm. Patient reports pain is much relieved with PRN pain meds. Patient ambulates in the room and in the hallway around 2200. Call light in reach. Will continue to monitor.
[2021-01-18 04:16] VITALS: BP 128/43; PULSE 64; TEMP 98.3
--- NOTE | 2021-01-18 06:49 | NUR ---
Report received from HERBERTH Melissa. Patient is in recliner and is A&O x 3. Patient states pain in chest in much better than the evening before and pain is 3/10 this morning. Call light and bedside table are within reach. Will continue to monitor patient throughout shift.
[2021-01-18 17:54] VITALS: BP 133/60; PULSE 66; TEMP 98.6
--- NOTE | 2021-01-18 19:15 | NUR ---
RECEIVED CHANGE OF SHIFT REPORT FROM DAY SHIFT NURSE. EXIT ALARM ON WHEN IN BED. PATIENT RESTING IN BED DURING REPORT. CALL LIGHT WITHIN REACH.
[2021-01-19 04:41] VITALS: BP 124/60; PULSE 59; TEMP 99.2
--- NOTE | 2021-01-19 07:20 | NUR ---
CHANGE OF SHIFT REPORT GIVEN TO DAY SHIFT NURSE.
--- NOTE | 2021-01-19 07:21 | NUR ---
REPORT GIVEN TO DAY SHIFT NURSE, MARGARET KEVIN.
[2021-01-19 08:40] LABS: BASO # 0.1 (0.0-0.2); BASO % 0.6 % (0.0-2.0); EOS # 0.3 (0.0-0.7); EOS % 3.6 % (0-4.0); GRAN # 5.7 (1.4-6.5); GRAN % 72.3 % (42.2-75.2); HEMOGLOBIN 12.9 g/dl (13.5-18.0); LYMPH # 1.2 (1.2-3.4); LYMPH % 15.8 % (20.0-51.0); MEAN CELL VOLUME 83 fl (80.0-100.0); MEAN CORPUSCULAR HEMOGLOBIN 27 pg (27.0-31.0); MEAN CORPUSCULAR HGB CONC 33 g/dl (33.0-37.0); MEAN PLATELET VOLUME 9.9 fl (7.4-10.4); MONO # 0.5 (0.1-0.6); MONO % 6.9 % (1.7-9.3); PLATELET COUNT 302 K/mm3 (130-400); RED BLOOD COUNT 4.71 M/mm3 (4.20-5.60); REDCELL DISTRIBUTION WIDTH-CV 12.6 % (11.5-14.5)
[2021-01-19 09:04] LABS: ALBUMIN 2.6 gm/dL (3.4-4.8); BILIRUBIN,TOTAL 0.8 mg/dL (0.2-1.2); CALCIUM 8.6 mg/dL (8.4-10.2); CREATININE, serum 0.85 mg/dL (0.72-1.25); MAGNESIUM 1.7 mg/dL (1.6-2.6); POTASSIUM 3.8 mmol/L (3.5-4.5); TOTAL PROTEIN 6.8 gm/dL (6.2-8.1)
--- NOTE | 2021-01-19 10:08 | NUR ---
SW met with the patient to follow up. The patient was lying in bed. He states that he is doing alright and that he did not do too much over the weekend. He had no concerns for SW at this time. SW to continue to follow.
--- NOTE | 2021-01-19 10:30 | NUR ---
Patients ulcer to inner buttocks are worse than reported. The one to left inner buttock is about the size of a golfball and dark in color, no drainage, not sure how deep the wound goes. There is a quarter size ulcer to the right inner buttock, brown in color, no drainage and skin is sloughing to that area. His coccyx is red with sloughing skin. Foam dressing placed to areas. Patient did not want the dressing but explained that it is important to help the wound heal. He stated sometimes it get soiled when he goes to the bathroom, explained that we can change it when that happens. Patient stated it does not hurt. No other changes at this time. Call light within reach.
--- NOTE | 2021-01-19 15:58 | NUR ---
IPR Director notified SIERRA that the team has set a discharge date for the patient, this Tuesday, 01/21, with cardiac rehab at [facility]. He is already scheduled to start cardiac rehab on Tuesday, 01/26. SIERRA attempted to meet with the patient to review the above. The patient was sleeping. SIERRA attempted to contact the patient's , Ignacia, to update. SIERRA left her a voicemail.
[2021-01-19 17:59] VITALS: BP 150/56; PULSE 76; TEMP 99.9
--- NOTE | 2021-01-19 18:36 | NUR ---
RECEIVED CHANGE OF SHIFT REPORT FROM DAY SHIFT NURSE. PATIENT UP IN ROOM, INDEPENDENTLY WITH NO REPORTED PROBLEMS OR CONCERNS. CALL LIGHT WITHIN REACH.
--- NOTE | 2021-01-20 01:37 | NUR ---
PATIENT SLEEPING, DOES NOT WAKE WHEN STAFF OPEN DOOR TO ROOM ON NURSING ROUNDS. OBSERVED BREATHING EVEN AND NONLABORED. CALL LIGHT WITHIN REACH. PATIENT IS UP INDEPENDENT IN ROOM WITH NO REPORTED PROBLEMS OR CONCERNS.
[2021-01-20 04:40] VITALS: BP 151/68; PULSE 69; TEMP 98.2
--- NOTE | 2021-01-20 06:50 | NUR ---
CHANGE OF SHIFT REPORT GIVEN TO DAY SHIFT NURSE, MIRLANDE KEVIN.
--- NOTE | 2021-01-20 09:31 | NUR ---
PT RESTING IN BED. BREAKFAST ATE, VSS, ASSESSMENTS COMPLETE, DRESSING CHANGE TO COCCYX. HEALING STAGE 3. AT BEDSIDE. THERAPY WORKING WITH PT AT THIS TIME.
--- NOTE | 2021-01-20 09:58 | NUR ---
SW met with the patient and his and informed them of the team's recommendation for a discharge tomorrow, 01/21, with cardiac rehab. The patient and his were in agreement to the plan. The patient and his have not decided on a preference for PCP clinic yet. The patient asked that SW follow up with him this afternoon on preference.
--- NOTE | 2021-01-20 10:32 | NUR ---
Arleen, [facility] Director, notified SIERRA that the patient informed her that he made a decision on PCP clinic. He would prefer [facility] and then [facility]. SIERRA contacted [facility]. The ab initio etl developer reports that they are not taking any new Medicare of Medicaid patients at this time. SIERRA contacted Melissa, Fence Maker, at [facility]. Melissa plans to talk to the providers and will let SIERRA know if a provider will accept him.
--- NOTE | 2021-01-20 13:10 | NUR ---
Admission QIM scores were reviewed by the team. Code of 4 chosen for toilet hygiene was determined by team discussion to be the most usual performance for this patient during the assessment period. Code of 3 chosen for toileting transfers was determined by team discussion to be the most usual performance for this patient during the assessment period. Code of 4 chosen for upper body dressing was determined by team discussion to be the most usual performance for this patient during the assessment period. Code of 88 chosen for rolling left to right was determined by team discussion to be the most usual performance before interventions for this patient during the assessment period. Code of 3 chosen for lying to sitting on side of bed was determined by team discussion to be the most usual performance for this patient during the assessment period. Code of 3 for sit to stand was determined by team discussion to be the most usual performance for this patient during the assessment period. Code of 3 for chair/bed to chair transfers was determined by team discussion to be the most usual performance for this patient during the assessment period. Code of 3 chosen for walk 10 feet was determined by team discussion to be the most usual performance for this patient during the assessment period.--Arleen Srinivasan,
--- NOTE | 2021-01-20 16:06 | NUR ---
Arleen, IPR Director, had notified [facility] that the patient was interested in resources for life alerts. SW provided the patient brochures for three different life alerts. SW also presented and read the IM form outloud to the patient. The patient verbalized understanding and gave approval to sign the form on his behalf. SW provided him with a copy.
[2021-01-20 17:11] VITALS: BP 154/69; PULSE 78; TEMP 99.5
--- NOTE | 2021-01-20 18:28 | NUR ---
REPORT TO VENUS KEVIN
--- NOTE | 2021-01-20 19:00 | NUR ---
RECEIVED CHANGE OF SHIFT REPORT FROM DAY SHIFT NURSE.
--- NOTE | 2021-01-20 21:30 | NUR ---
DENIES SOA BUT CONTINUES TO HAVE CHEST DISCOMFORT TO MID STERNAL AREA OF CHEST WITH MOVEMENT AND WITH TOUCH. DENIES NUMBNESS/TINGLING TO EXTREMITIES AT THIS TIME. UP IN ROOM INDEPENDENTLY WITH NO REPORTED PROBLEMS OR CONCERNS. CALL LIGHT WITHIN REACH.
--- NOTE | 2021-01-21 02:48 | NUR ---
PATIENT SLEEPING, DOES NOT WAKE WHEN STAFF ENTER ROOM ON ROUNDS, OBSERVED BREATHING NONLABORED AND EVEN. CALL LIGHT WITHIN REACH.
[2021-01-21 05:50] VITALS: BP 134/51; PULSE 59; TEMP 98.4
--- NOTE | 2021-01-21 07:27 | NUR ---
CHANGE OF SHIFT REPORT GIVEN TO DAY SHIFT NURSE, NORA KEVIN.
[2021-01-21] MEDS ORDERED: BRILINTA90 MG PO (08:51)
[2021-01-21] MEDS ORDERED: LIPITOR 80MG80 MG PO (08:51)
[2021-01-21] MEDS ORDERED: COREG 6.256.25 MG/TA PO (08:52)
[2021-01-21] MEDS ORDERED: OMEGA-3 1000 MG1 CAP PO (08:52)
[2021-01-21] MEDS ORDERED: NITROSTAT0.4 MG/TAB SL (08:52)
[2021-01-21] MEDS ORDERED: ZESTRIL40 MG PO (08:53)
[2021-01-21] MEDS ORDERED: GLUCOPHAGE850 MG/TAB PO (08:53)
[2021-01-21] MEDS ORDERED: ZINC OXIDE56.7 GM TOP (08:54)
[2021-01-21] MEDS ORDERED: K-TAB20 PO (08:56)
[2021-01-21] MEDS ORDERED: ULTRAM 50MG TAB50 MG PO (08:57)
--- NOTE | 2021-01-21 15:50 | NUR ---
Melissa, harness repairer, reports that Dr. Leigha Clifton has accepted the patient. An appoinment with Dr. Clifton was secured on 01/27 at 1500. SW notified the patient's RN of the appointment. The patient is discharge back home with his today, 01/21, and will do cardiac rehab. No additional needs at this time.
--- NOTE | 2021-01-21 17:15 | NUR ---
Patient health summary, discharge summary, and home meds printed and reviewed with patient and , Pham. Stressed importance of follow up appointments. has already picked up medication from pharmacy. Reviewed medication list. Belongings gathered by to include cell phone and parts person. Patient transported via by HERBERTH Gerardo. and seatbelted for the ride home. Patient and have no further questions at this time.
== END 2021-01-21 17:30 | disposition home or self-care (01) | DRG 280 ==
PROVIDERS: Nurse Practitioner Family; ADMIT Internal Medicine
DX: I21.4 Non-ST elevation (NSTEMI) myocardial infarction (principal); J96.01 Acute respiratory failure with hypoxia; I50.23 Acute on chronic systolic (congestive) heart failure; Q60.0 Renal agenesis, unilateral; M96.89 Other intraoperative and postprocedural complications and disorders of the musculoskeletal system; I11.0 Hypertensive heart disease with heart failure; I49.8 Other specified cardiac arrhythmias; E02 Subclinical iodine-deficiency hypothyroidism; R53.81 Other malaise; Z86.74 Personal history of sudden cardiac arrest; E11.65 Type 2 diabetes mellitus with hyperglycemia; R26.89 Other abnormalities of gait and mobility; R71.8 Other abnormality of red blood cells; I44.7 Left bundle-branch block, unspecified; R13.12 Dysphagia, oropharyngeal phase; I95.9 Hypotension, unspecified; E87.6 Hypokalemia; R74.01 Elevation of levels of liver transaminase levels; E78.5 Hyperlipidemia, unspecified; I25.10 Atherosclerotic heart disease of native coronary artery without angina pectoris; Z95.5 Presence of coronary angioplasty implant and graft; Z79.82 Long term (current) use of aspirin; Z79.899 Other long term (current) drug therapy; Z91.14 Patient's other noncompliance with medication regimen; Z79.4 Long term (current) use of insulin; Z73.6 Limitation of activities due to disability; Y84.8 Other medical procedures as the cause of abnormal reaction of the patient, or of later complication, without mention of misadventure at the time of the procedure; Y92.230 Patient room in hospital as the place of occurrence of the external cause; S31.000A Unspecified open wound of lower back and pelvis without penetration into retroperitoneum, initial encounter
CPT/HCPCS: 99222-AI; 99231-AI; 99232-AI; 99239; J1815; J2270

== ENCOUNTER 2021-02-11 10:02 | Outpatient (CLI) | payer MEDICARE ==
[~2021-02-11] VITALS: Ht 170.2 cm; Wt 83.3 kg
[~2021-02-11 10:02] MED LIST changes: +GLUCOPHAGE850 MG/TAB PO; +NITROSTAT0.4 MG/TAB SL; +ULTRAM 50MG TAB50 MG PO; +ZINC OXIDE56.7 GM TOP
[2021-02-11] MEDS ORDERED: COREG 6.256.25 MG/TA PO (10:25)
[2021-02-11] MEDS ORDERED: ZESTRIL40 MG PO (10:26)
[2021-02-11] MEDS ORDERED: BRILINTA90 MG PO (10:26)
[2021-02-11] MEDS ORDERED: GLUCOPHAGE850 MG/TAB PO (10:27)
[2021-02-11] MEDS ORDERED: K-TAB20 PO (10:27)
[2021-02-11] MEDS ORDERED: LIPITOR 80MG80 MG PO (10:28)
[2021-02-11] MEDS ORDERED: ASPIRIN E.C. 8181 MG PO (10:29)
[2021-02-11] MEDS ORDERED: PLAVIX 75MG TAB75 MG PO (10:29)
[2021-02-11] MEDS ORDERED: NATURAL MAGNES200 MG PO (10:30)
[2021-02-11 10:40] VITALS: BP 129/72; PULSE 72; TEMP 99
[2021-02-11 14:27] VITALS: BP 127/76; PULSE 73; TEMP 99
== END 2021-02-11 14:28 | disposition home or self-care (01) ==
LOC: EUO 10:02
DX: E83.42 Hypomagnesemia (principal)
CPT/HCPCS: J3475